=== PATIENT | female | born 1965 | race Caucasian/White ===

== ENCOUNTER → 2018-11-07 | Outpatient (CLI) | payer BC ==
--- NOTE | 2018-11-07 11:49 | Diagnostic Imaging Report ---
PROCEDURE: CT abdomen and pelvis without contrast. TECHNIQUE: Multiple contiguous axial images were obtained through the abdomen and pelvis without the use of intravenous contrast. Auto Exposure Controls were utilized during the CT exam to meet ALARA standards for radiation dose reduction. INDICATION: Left-sided flank pain radiating to the left groin for 2 weeks. Patient also has hematuria. COMPARISON: No prior studies are available for comparison. FINDINGS: The lung bases are clear. No discrete liver mass is identified. The gallbladder is unremarkable. No biliary ductal dilatation is seen. The pancreas and spleen are unremarkable. No adrenal mass is identified. No renal calculus or hydronephrosis is detected. No ureteral calculus or ureteral dilatation is identified. The aorta is partially calcified but nonaneurysmal. No central retroperitoneal or mesenteric lymphadenopathy is identified. The bowel loops are of normal caliber. There is no obstruction. No bladder calculi are seen. The uterus is unremarkable. There is no ascites. IMPRESSION: Unremarkable noncontrast CT of the abdomen and pelvis. There is no evidence of urinary tract calculi or obstruction. Dictated by: Dictated on workstation # [id number]
== END ==
LOC: RAD FS 09:28
PROVIDERS: ATTEND Family Medicine
DX: R10.32 Left lower quadrant pain (principal)
CPT/HCPCS: 74176

== ENCOUNTER 2022-04-05 06:13 | Observation (INO) | payer BC ==
[~2022-04-05] VITALS: Ht 147.3 cm; Wt 58.7 kg
[2022-04-05] MEDS ORDERED: NITROGLYCERIN 0.4 MG SL TABS BTL 25'S SL PRN ×2 (06:30→08:15)
[2022-04-05] MEDS ORDERED: ASPIRIN 81 MG CHEW (CHILDREN'S ASA) PO ONE (06:30)
--- NOTE | 2022-04-05 06:40 | ED Chest Pain ---
General Chief Complaint: Chest Wall Stated Complaint: CHEST PAIN Nursing Triage Note: Patient states that she began coughing yesterday and having chest tightness. Patient denies having pain when asked to rate her pain, she states "its just a little tight". Source: patient Exam Limitations: no limitations History of Present Illness Date Seen by Provider: Apr 05, 2022 Time Seen by Provider: 06:15 Initial Comments Patient is a 56-year-old female with history of hypertension who presents with left-sided chest pain described as soreness under her left breast rating to her left shoulder blade starting 1 hour prior to ED arrival upon getting ready for work this morning. Pain has been continuous lasting 30 to 40 minutes, waxes and wanes and is rated mild to moderate. Pain is currently described as mild. Pain is not reproduced with deep breathing or palpation, not associate with nausea vomiting or sweats. Patient denies abdominal pain, leg pain or swelling. Patient is a non-smoker. Additional cardiac risk factors include a brother who had an OH in his early 40s. Timing/Duration: 1 hour Severity/Quality: other Location: other Radiation: other Prior CP/Workup: other Modifying Factors: improves with other Allergies and Home Medications Allergies Coded Allergies: No Known Drug Allergies (Unverified , 04/05/22) Patient Home Medication List Home Medication List Reviewed: Yes Review of Systems Review of Systems Constitutional: see HPI EENTM: See HPI Respiratory: See HPI Cardiovascular: See HPI Gastrointestinal: See HPI Genitourinary: See HPI Musculoskeletal: see HPI Skin: see HPI Psychiatric/Neurological: See HPI Endocrine: See HPI Hematologic/Lymphatic: See HPI All Other Systems Reviewed Negative Unless Noted: No Past Tfrkzag-Izzmow-Qydzzw Hx Patient Social History Tobacco Use?: No Substance use?: No Alcohol Use?: No Pt feels they are or have been: No Physical Exam Vital Signs Vital Signs - First Documented 04/05/22 06:15 Temp 36.7 Pulse 86 Resp 18 B/P (MAP) 187/91 (123) Pulse Ox 97 O2 Delivery Room Air Capillary Refill : Less Than 3 Seconds Height, Weight, BMI Height: '" Weight: lbs. oz. kg; 27.00 BMI Method: General Appearance: No Apparent Distress, WD/WN HEENT: PERRL/EOMI, Normal ENT Inspection, Pharynx Normal Neck: Normal Inspection Respiratory: Lungs Clear Cardiovascular: Regular Rate, Rhythm, No Edema Gastrointestinal: Non Tender, Soft Neurologic/Psychiatric: Oriented x3 Focused Exam Sepsis Stage: Ruled Out Progress/Results/Core Measures Results/Orders Lab Results Laboratory Tests Test 04/05/22 06:45 Range/Units White Blood Count 8.9 4.3-11.0 10^3/uL Red Blood Count 5.06 3.80-5.11 10^6/uL Hemoglobin 14.6 11.5-16.0 g/dL Hematocrit 44 35-52 % Mean Corpuscular Volume 87 80-99 fL Mean Corpuscular Hemoglobin 29 25-34 pg Mean Corpuscular Hemoglobin Concent 33 32-36 g/dL Red Cell Distribution Width 12.4 10.0-14.5 % Platelet Count 245 130-400 10^3/uL Mean Platelet Volume 9.6 9.0-12.2 fL Immature Granulocyte % (Auto) 0 % Neutrophils (%) (Auto) 45 42-75 % Lymphocytes (%) (Auto) 41 12-44 % Monocytes (%) (Auto) 10 0-12 % Eosinophils (%) (Auto) 4 0-10 % Basophils (%) (Auto) 0 0-10 % Neutrophils # (Auto) 4.0 1.8-7.8 10^3/uL Lymphocytes # (Auto) 3.7 1.0-4.0 10^3/uL Monocytes # (Auto) 0.9 0.0-1.0 10^3/uL Eosinophils # (Auto) 0.3 0.0-0.3 10^3/uL Basophils # (Auto) 0.0 0.0-0.1 10^3/uL Immature Granulocyte # (Auto) 0.0 0.0-0.1 10^3/uL My Orders Orders - NIMISHA CARPENTER DO Ekg Tracing (04/05/22 06:20) Cbc With Automated Diff (04/05/22 06:24) Comprehensive Metabolic Panel (04/05/22 06:24) Troponin I Fs (04/05/22 06:24) Chest 1 View Ap/Pa Only (04/05/22 06:24) Aspirin Chewable Tablet (Baby Aspirin Ch (04/05/22 06:30) Nitroglycerin 0.4 Mg Btl 25's (Nitrostat (04/05/22 06:30) Ed Iv/Invasive Line Start (04/05/22 06:30) Monitor-Rhythm Ecg Trace Only (04/05/22 06:30) Fibrin Degradation Products (04/05/22 06:46) Ed Admission (Communication) (04/05/22 06:51) Clopidogrel Tablet (Plavix Tablet) (04/05/22 07:00) Enoxaparin Injection (Lovenox Injection) (04/05/22 07:00) Medications Given in ED Current Medications Medications Dose Ordered Sig/Joana Route Start Time Stop Time Status Last Admin Dose Admin Aspirin 324 mg ONCE ONCE PO 04/05/22 06:30 04/05/22 06:31 DC 04/05/22 06:35 324 MG Nitroglycerin 1 TAB Q 5 MIN X 3 NEEDED PRN SL 04/05/22 06:30 04/05/22 06:35 0.4 MG Vital Signs/I&O 04/05/22 06:15 Temp 36.7 Pulse 86 Resp 18 B/P (MAP) 187/91 (123) Pulse Ox 97 O2 Delivery Room Air Blood Pressure Mean: 123 Departure Communication (Admissions) EKG: Sinus rhythm, rate 83, moderate ST depression in anterior lateral leads without reciprocal changes. Chest x-ray: No acute cardiopulmonary disease. Exertional chest pain in 56-year-old patient with history of hypertension and significant family history of coronary artery disease with ST depression in anterolateral and inferior leads on EKG. Criteria for STEMI not met on initial EKG. Aspirin and nitroglycerin and cardiac given with resolution of symptoms. Cardiac biomarkers are pending. Dr. Santos agrees to consult. Impression Primary Impression: Acute coronary syndrome Disposition: ADMITTED INPATIENT Condition: Stable Admissions Decision to Admit Reason: Admit from ER (General) Decision to Admit/Date: Apr 05, 2022 Time/Decision to Admit Time: 06:41 Departure-Patient Inst. Referrals: SANDEEP RYAN MD (PCP/Family) Primary Care Physician NIMISHA CARPENTER DO Apr 05, 2022 06:40
[2022-04-05 06:51] LABS: BASOPHILS % (AUTO) 0 % (0-10); EOSINOPHILS # (AUTO) 0.3 10^3/uL (0.0-0.3); EOSINOPHILS % (AUTO) 4 % (0-10); HEMATOCRIT 44 % (35-52); HEMOGLOBIN 14.6 g/dL (11.5-16.0); LYMPHOCYTES # (AUTO) 3.7 10^3/uL (1.0-4.0); LYMPHOCYTES % (AUTO) 41 % (12-44); MEAN CORPUSCULAR HEMOGLOBIN 29 pg (25-34); MEAN CORPUSCULAR HGB CONC 33 g/dL (32-36); MEAN CORPUSCULAR VOLUME 87 fL (80-99); MEAN PLATELET VOLUME 9.6 fL (9.0-12.2); MONOCYTES # (AUTO) 0.9 10^3/uL (0.0-1.0); MONOCYTES % (AUTO) 10 % (0-12); NEUTROPHILS % (AUTO) 45 % (42-75); PLATELET COUNT 245 10^3/uL (130-400); WHITE BLOOD COUNT 8.9 10^3/uL (4.3-11.0)
--- NOTE | 2022-04-05 06:54 | Diagnostic Imaging Report ---
EXAMINATION: Chest radiograph, portable AP view. DATE: 04/05/2022 6:50 AM INDICATION: 56-year-old female, cough. COMPARISON: None. FINDINGS: Heart size and mediastinal contours are grossly unremarkable. There is no identified pneumothorax. Lung volumes are low. There is associated central bronchovascular crowding. There are opacities in the left medial lung base. There are technical limitations of the study given patient body habitus and difficulties with exposure. IMPRESSION: 1. Low lung volumes. 2. Nonspecific opacities in left medial lung base which may relate to atelectasis and/or infiltrate. Dictated by: Dictated on workstation # [id number]
[2022-04-05] MEDS ORDERED: CLOPIDOGREL 300 MG (PLAVIX) TABLET PO ONE (07:00)
[2022-04-05] MEDS ORDERED: ENOXAPARIN 60 MG/0.6 ML (LOVENOX) SYR SC ONE (07:00)
[2022-04-05 07:12] LABS: CHLORIDE 105 MMOL/L (98-107); POTASSIUM 4.5 MMOL/L (3.6-5.0); SODIUM 140 MMOL/L (135-145)
[2022-04-05 07:13] LABS: ALANINE AMINOTRANSFERASE 12 U/L (0-55); ALBUMIN 4.1 GM/DL (3.2-4.5); ALKALINE PHOSPHATASE 100 U/L (40-136); BILIRUBIN,TOTAL 0.4 MG/DL (0.1-1.0); BUN/CREATININE RATIO 16; CALCIUM 9.4 MG/DL (8.5-10.1); CARBON DIOXIDE 23 MMOL/L (21-32); CREATININE SERUM 0.58 MG/DL (0.60-1.30); GFR ESTIMATED 105; GLUCOSE 102 MG/DL (70-105); TOTAL PROTEIN 7.9 GM/DL (6.4-8.2)
[2022-04-05 07:37] LABS: INR 0.9 (0.8-1.4)
[2022-04-05] MEDS ORDERED: LIDOCAINE 1% INJ 30 ML (XYLOCAINE) VIAL ONE (07:56)
[2022-04-05] MEDS ORDERED: HEParin (CATH LAB) 2,000 ML IV ONE (07:57)
[2022-04-05] MEDS ORDERED: NS IV 1000 ML 0 ML ONE (07:57)
[2022-04-05 08:00] VITALS: BP 152/85
[2022-04-05] MEDS ORDERED: PATIENT MAY USE OWN MEDS, ALL PO SCH ×4 (08:15→17:30)
[2022-04-05] MEDS ORDERED: morphine INJ 4 MG/ML 1 ML (VIAL/SYRINGE) IV PRN (08:15)
[2022-04-05] MEDS ORDERED: ONDANSETRON 4 MG/2 ML (SDV) Z0FRAN IVP PRN (08:15)
[2022-04-05] MEDS ORDERED: MTP25TSR PO (08:57)
[2022-04-05] MEDS ORDERED: LOVA10TA PO (08:57)
[2022-04-05] MEDS ORDERED: NS IV 1000 ML 1,000 ML IV SCH ×2 (09:00→12:00)
[2022-04-05] MEDS ORDERED: ASPI-999 PO (09:00)
--- NOTE | 2022-04-05 09:25 | Cardiac Procedure Note-CS/ASA ---
Pre-Procedure Note Pre-Op Procedure Note Date of Available H&P: Apr 05, 2022 Date H&P Reviewed: Apr 05, 2022 Time H&P Reviewed: 09:25 History & Physical: H&P Reviewed, Patient Examed, No changes noted Pre-Operative Diagnosis: CP Conscious Sedation Pre-Proced Time 09:25 ASA Score 3 For ASA 3 and 4: Consider anesthesia and medical clearance. Also, for patients with a history of failed moderate sedation consider anesthesia. Airway Lungs Heart ASA score ASA 1: a normal healthy patient ASA 2: a patient with a mild systemic disease (mid diabetes, controlled hypertension, obesity ASA 3: a patient with a severe systemic disease that limits activity (angina, COPD, prior Myocardial infarction) ASA 4: a patient with an incapacitating disease that is a constant threat to life (CHF, renal failure) ASA 5: a moribund patient not expected to survive 24 hrs. (ruptured aneurysm) ASA 6: a declared brain- patient whose organs are being harvested. For emergent operations, add the letter E after the classification Mallampati Classification Grade 3 Sedation Plan Analgesia, Amnesia, Plan communicated to team members, Discussed options with patient/fam, Discussed risks with patient/fam The patient is an appropriate candidate to undergo the planned procedure, sedation, and anesthesia. The patient immediately re-assessed prior to indication. RAYMOND MELENDEZ MD Apr 05, 2022 09:25
--- NOTE | 2022-04-05 09:25 | Consultation-Cardiology ---
HPI-Cardiology Cardiology Consultation Date of Consultation 04/05/22 Date of Admission Time Seen by Provider: 09:23 Indication: Chest pain HPI 56-year-old lady with history of hypertension, woke up this morning with chest pain retrosternal area dull in nature, came into the emergency room for evaluation. She was given nitroglycerin with appropriate relief. Had minimal nondiagnostic EKG changes. On my evaluation she was still having some chest pressure, discomfort with taking deep breath. Home Medications & Allergies Allergies: Coded Allergies: No Known Drug Allergies (Unverified , 04/05/22) Home Medication List Reviewed: Yes PUS-Kkqmlv-Evkafy Hx Patient Social History Marital Status: Employed/Student: employed Smoking Status: Never a Smoker Have you traveled recently?: No Alcohol Use?: No Past Medical History Discussed below Family Medical History Significant Family History: No Pertinent Family Hx Review of Systems-General Review of Systems Constitutional: see HPI EENTM: see HPI, no symptoms reported Respiratory: no symptoms reported, see HPI Cardiovascular: see HPI, chest pain; No edema, No Hx of Intervention, No palpitations, No syncope, No vascular heart diseas, No other Gastrointestinal: no symptoms reported, see HPI Genitourinary: no symptoms reported, see HPI Musculoskeletal: see HPI Skin: see HPI Psychiatric/Neurological: See HPI All Other Systems Reviewed Negative Unless Noted: No Reviewed Test Results Reviewed Test Results Lab Laboratory Tests Test 04/05/22 06:45 Range/Units White Blood Count 8.9 4.3-11.0 10^3/uL Red Blood Count 5.06 3.80-5.11 10^6/uL Hemoglobin 14.6 11.5-16.0 g/dL Hematocrit 44 35-52 % Mean Corpuscular Volume 87 80-99 fL Mean Corpuscular Hemoglobin 29 25-34 pg Mean Corpuscular Hemoglobin Concent 33 32-36 g/dL Red Cell Distribution Width 12.4 10.0-14.5 % Platelet Count 245 130-400 10^3/uL Mean Platelet Volume 9.6 9.0-12.2 fL Immature Granulocyte % (Auto) 0 % Neutrophils (%) (Auto) 45 42-75 % Lymphocytes (%) (Auto) 41 12-44 % Monocytes (%) (Auto) 10 0-12 % Eosinophils (%) (Auto) 4 0-10 % Basophils (%) (Auto) 0 0-10 % Neutrophils # (Auto) 4.0 1.8-7.8 10^3/uL Lymphocytes # (Auto) 3.7 1.0-4.0 10^3/uL Monocytes # (Auto) 0.9 0.0-1.0 10^3/uL Eosinophils # (Auto) 0.3 0.0-0.3 10^3/uL Basophils # (Auto) 0.0 0.0-0.1 10^3/uL Immature Granulocyte # (Auto) 0.0 0.0-0.1 10^3/uL Prothrombin Time 13.0 12.2-14.7 SEC INR Comment 0.9 0.8-1.4 Activated Partial Thromboplast Time 26 24-35 SEC D-Dimer 0.49 0.00-0.49 UG/ML Sodium Level 140 135-145 MMOL/L Potassium Level 4.5 3.6-5.0 MMOL/L Chloride Level 105 98-107 MMOL/L Carbon Dioxide Level 23 21-32 MMOL/L Anion Gap 12 5-14 MMOL/L Blood Urea Nitrogen 9 7-18 MG/DL Creatinine 0.58 L 0.60-1.30 MG/DL Estimat Glomerular Filtration Rate 105 BUN/Creatinine Ratio 16 Glucose Level 102 70-105 MG/DL Calcium Level 9.4 8.5-10.1 MG/DL Corrected Calcium 9.3 8.5-10.1 MG/DL Total Bilirubin 0.4 0.1-1.0 MG/DL Aspartate Amino Transf (AST/SGOT) 18 5-34 U/L Alanine Aminotransferase (ALT/SGPT) 12 0-55 U/L Alkaline Phosphatase 100 40-136 U/L Troponin I < 0.30 <0.30 NG/ML Total Protein 7.9 6.4-8.2 GM/DL Albumin 4.1 3.2-4.5 GM/DL Physical Exam Physical Exam Vital Signs Vital Signs - First Documented 04/05/22 06:15 Temp 36.7 Pulse 86 Resp 18 B/P (MAP) 187/91 (123) Pulse Ox 97 O2 Delivery Room Air Capillary Refill : Less Than 3 Seconds Height, Weight, BMI Height: '" Weight: lbs. oz. kg; 27.05 BMI Method: General Appearance: No Apparent Distress, WD/WN HEENT: PERRL/EOMI, Normal ENT Inspection, Pharynx Normal Neck: Normal Inspection Respiratory: Lungs Clear Cardiovascular: Regular Rate, Rhythm, No Edema Gastrointestinal: Non Tender, Soft Neurologic/Psychiatric: Oriented x3 A/P-Cardiology Admission Diagnosis Chest pain Coronary artery disease Hypertension Hyperlipidemia Assessment/Plan Chest pain nonspecific etiology resembling angina Minimal EKG changes, chest pain is responsive to nitroglycerin but still having some discomfort in the retrosternal area. Discussed the management plan, recommended cardiac catheterization possible PTCA. Hypertension, maintained on metoprolol. Monitor blood pressure Questionable hyperlipidemia, I will evaluate lipid profile Clinical Quality Measures AMI/AHF: ASA po Prior to arrival: RAYMOND Ravi MD Apr 05, 2022 09:25
--- NOTE | 2022-04-05 10:06 | History & Physical ---
HPI History of Present Illness: 56 yo female with Chest tightness in mid chest that started when she got out of bed and became more noticeable as she got ready for work. Worse with deep breath. No history of chest tightness or pressure in the past even with activity. Does not radiate. Started around 5 am. [place] like a pulled muscle to her. Currently has no sensation unless she takes a deep breath then feels the tightness. She has no history of PE. She does admit family history of heart disease, mother has had stents placed, brother has had heart attack. Source: patient Date seen by provider: Apr 05, 2022 Time Seen by Provider: 10:03 Attending Physician Gt Horton MD PCP Admitting Physician: Maggie Branham MD Attending Physician: Maggie Branham MD Consult Date of Admission Apr 05, 2022 at 08:41 Home Medications Home Medications Reviewed patient Home Medication Reconciliation performed by pharmacy medication reconciliations fire extinguisher technician and/or nursing. Patients Allergies have been reviewed. Allergies Coded Allergies: No Known Drug Allergies (Unverified , 04/05/22) DKU-Owyiti-Rkaygw Hx Patient Social History Marrital Status: Employed/Student: employed (works at [employer]) Smoking Status: Never a Smoker Alcohol Use?: No Have you traveled recently?: No Immunizations Up To Date Influenza Vaccine Up-to-Date: Yes; Up-to-Date Past Medical History PMHx: HTN Glaucoma HLD SurgHx: C section x 3 Family Medical History Significant Family History: Heart Disease, Cancer (father colon cancer), Diabetes Review of Systems (CHC) Constitutional: No fever EENTM: No nose congestion, No throat pain Respiratory: cough (x 2 days); No short of breath Cardiovascular: see HPI Gastrointestinal: No abdominal pain, No constipation, No diarrhea, No nausea, No vomiting Genitourinary: No dysuria Musculoskeletal: No joint pain Skin: No rash Psychiatric/Neurological: Denies Anxiety, Denies Depressed Reviewed Test Results Reviewed Test Results Lab Laboratory Tests Test 04/05/22 06:45 Range/Units White Blood Count 8.9 4.3-11.0 10^3/uL Red Blood Count 5.06 3.80-5.11 10^6/uL Hemoglobin 14.6 11.5-16.0 g/dL Hematocrit 44 35-52 % Mean Corpuscular Volume 87 80-99 fL Mean Corpuscular Hemoglobin 29 25-34 pg Mean Corpuscular Hemoglobin Concent 33 32-36 g/dL Red Cell Distribution Width 12.4 10.0-14.5 % Platelet Count 245 130-400 10^3/uL Mean Platelet Volume 9.6 9.0-12.2 fL Immature Granulocyte % (Auto) 0 % Neutrophils (%) (Auto) 45 42-75 % Lymphocytes (%) (Auto) 41 12-44 % Monocytes (%) (Auto) 10 0-12 % Eosinophils (%) (Auto) 4 0-10 % Basophils (%) (Auto) 0 0-10 % Neutrophils # (Auto) 4.0 1.8-7.8 10^3/uL Lymphocytes # (Auto) 3.7 1.0-4.0 10^3/uL Monocytes # (Auto) 0.9 0.0-1.0 10^3/uL Eosinophils # (Auto) 0.3 0.0-0.3 10^3/uL Basophils # (Auto) 0.0 0.0-0.1 10^3/uL Immature Granulocyte # (Auto) 0.0 0.0-0.1 10^3/uL Prothrombin Time 13.0 12.2-14.7 SEC INR Comment 0.9 0.8-1.4 Activated Partial Thromboplast Time 26 24-35 SEC D-Dimer 0.49 0.00-0.49 UG/ML Sodium Level 140 135-145 MMOL/L Potassium Level 4.5 3.6-5.0 MMOL/L Chloride Level 105 98-107 MMOL/L Carbon Dioxide Level 23 21-32 MMOL/L Anion Gap 12 5-14 MMOL/L Blood Urea Nitrogen 9 7-18 MG/DL Creatinine 0.58 L 0.60-1.30 MG/DL Estimat Glomerular Filtration Rate 105 BUN/Creatinine Ratio 16 Glucose Level 102 70-105 MG/DL Calcium Level 9.4 8.5-10.1 MG/DL Corrected Calcium 9.3 8.5-10.1 MG/DL Total Bilirubin 0.4 0.1-1.0 MG/DL Aspartate Amino Transf (AST/SGOT) 18 5-34 U/L Alanine Aminotransferase (ALT/SGPT) 12 0-55 U/L Alkaline Phosphatase 100 40-136 U/L Troponin I < 0.30 <0.30 NG/ML Total Protein 7.9 6.4-8.2 GM/DL Albumin 4.1 3.2-4.5 GM/DL Physical Exam-([facility]) Physical Exam Vital Signs VS - Last 72 Hours, by Label 04/05/22 04/05/22 04/05/22 04/05/22 06:15 07:46 08:00 08:45 Temp 36.7 37.3 Pulse 86 82 84 Resp 18 16 20 B/P (MAP) 187/91 (123) 141/75 152/85 (107) Pulse Ox 97 96 96 O2 Delivery Room Air Room Air Room Air Room Air 04/05/22 04/05/22 08:52 12:30 Pulse 77 76 Capillary Refill : Less Than 3 Seconds General Appearance: WD/WN, no apparent distress Respiratory: lungs clear, normal breath sounds Cardiovascular: regular rate, rhythm, no murmur Gastrointestinal: normal bowel sounds, non tender, soft Extremities: no pedal edema Neurologic/Psychiatric: alert, normal mood/affect Skin: normal color, warm/dry Assessment/Plan Assessment/Plan Admission Status: Observation (1) Chest pain Status: Acute Assessment & Plan: Initial trop neg, EKG with some ST depression, given enoxaparin treatment dose, asa and plavix and Cardiology consulted. (2) Hypertension Status: Chronic Qualifiers: Qualified Codes: I10 - Essential (primary) hypertension Clinical Quality Measures AMI/AHF: ASA po Prior to arrival: MAGGIE Franklin MD Apr 05, 2022 10:06
[2022-04-05] MEDS ORDERED: HEParin 1000 UNIT/ML (10ML VIAL) FOR BOLUS ONE (10:39)
[2022-04-05] MEDS ORDERED: VERAPAMIL 5 MG/2 ML (CALAN) VIAL IV ONE (10:39)
[2022-04-05] MEDS ORDERED: fentaNYL INJ 100 MCG/2 ML AMP ONE (10:39)
[2022-04-05] MEDS ORDERED: MIDAZOLAM 5 MG/5 ML (VERSED) VIAL ONE (10:39)
[2022-04-05] MEDS ORDERED: NITRO DRIP 25000 MCG/D5W 0 ML IV ONE (10:39)
--- NOTE | 2022-04-05 12:00 | Discharge Inst-Post CATH ---
Discharge Inst-CATH/EP Problems Reviewed?: Yes Post Cardiac Cath/EP D/C Inst Follow Up/Plan Appointment with Dr. Santos's office in 2 to 4 weeks <b>CARDIAC CATH/EP PROCEDURE DISCHARGE INSTRUCTIONS</b> ACTIVITY * Go Home directly and rest. * Limit activity of the leg (or wrist if it was used) for 7 days including aer obics, swimming, jogging, bicycling, etc. * Restrict stair-climbing for 7 days if possible, if not, climb up with your non-cath leg, then bring together on the same step. * Avoid lifting, pushing, pulling or excessive movement of the affected extremi ty for 7 days. * Customary sexual activity may be resumed after 2 days-use caution not to use a position that strains or causes pain to the affected extremity. * No driving for 24 hours. * NO SMOKING. * Avoid straining for bowel movements for 7 days. * Gentle walking on level ground is allowed. * Returning to work will depend on the type of procedure and the results. Your doctor will discuss this with you. CALL YOUR DOCTOR FOR ANY OF THE FOLLOWING: *If bleeding from the puncture site occurs- Apply gentle pressure to site with clean cloth and call your doctor or EMS. * If a knot or lump forms under the skin, increases in size, or causes pain. * If bruising appears to be worsening or moving further down your leg instead of disappearing. * Temperature above 101 F. CARE OF YOUR GROIN INCISION; * Bruising or purple discoloration of the skin near the puncture site is common. * You may shower only, no bathtub bathing for 5 days. Be careful to avoid slipping as your leg may feel stiff. * If a closure device was used on your femoral artery, please see the attached guide regarding care of the device and your leg. * Leave dressing on FOR 24 hours. CARE OF YOUR WRIST INCISION; * Bruising or purple discoloration of the skin near the puncture site is common. * You may shower. * DO NOT submerge wrist. * Leave dressing on FOR 24 hours. RAYMOND SANTOS MD Apr 05, 2022 12:00
--- NOTE | 2022-04-05 12:04 | Cardiac Cath Report ---
Cardiac Cath Report Physician (s)/Auto Mechanics Instructor (s) Physician RAYMOND MELENDEZ MD Pre-Procedure Diagnosis Pre-Procedure Diagnosis: CP Post-Procedure Note Procedure Start Date: Apr 05, 2022 Name of Procedure: Left heart catheterization Aortic root angiogram Findings/Procedure Note PROCEDURE NOTE: 56-year-old lady admitted with acute chest pain, minimal EKG changes, cardiac catheterization was advised. After explaining the procedure to the patient, all pros and cons were explained, all questions were answered. The patient signed the consent and then she was placed in the cardiac catheterization laboratory. Groin was prepped in SL fashion local anesthesia was used. Sheath placed in the right femoral artery. Brenna' right and left catheter were used to access the coronary system. Pigtail was used to access the left ventricular cavity. Left ventriculogram was not done, pressure was measured Aortic arch angiogram root angiogram was done At the end of the procedure the sheath was removed. Closure device was deployed FINDINGS: Hemodynamics LV 130/10, end-diastolic pressure of 10 Aorta 137/81 mean of 103 ANATOMY: Left Main is free of obstructive disease Left Anterior Descending has mild to moderate disease 40 to 50% stenosis in the mid LAD nonobstructive disease Left Circumflex is moderate in size with no obstructive disease Right Coronary Artery is dominant artery with no obstructive disease LV Gram was not done, pressure was measured and normal left ventricular end- diastolic pressure Aorta evaluation done with aortic root angiogram showing normal aortic root, no dissection or aneurysm. Normal aortic valve CONCLUSION: 1. Mild to moderate mid LAD stenosis nonobstructive disease otherwise no significant obstructive disease with dominant right coronary system 2. Normal left ventricular end-diastolic pressure 3. Normal aortic root and aortic arch. DISCUSSION AND RECOMMENDATION: Chest pain is probably noncardiac, medical therapy is recommended Anesthesia Type: Conscious Sedation Estimated blood loss (mL): 20 ml Contrast Amount: 42 ml Total Radiation Dose: 211 mGy Post-Procedure Diagnosis Post-operative diagnosis: Chest pain Coronary artery disease Hypertension Hyperlipidemia RAYMOND MELENDEZ MD Apr 05, 2022 12:04
[2022-04-05] MEDS ORDERED: ASPI-1238 PO (14:22)
--- NOTE | 2022-04-05 15:28 | Discharge Summary ---
Discharge Summary Hospital Course Problems/Diagnosis: (1) Chest pain Status: Acute Assessment & Plan: Initial trop neg, EKG with some ST depression, given enoxaparin treatment dose, asa and plavix and Cardiology consulted- repeat trop neg, cath done with no intervention needed. (2) Hypertension Status: Chronic Qualifiers: Qualified Codes: I10 - Essential (primary) hypertension Hospital Course Date of Admission: Apr 05, 2022 at 08:41 Admission Diagnosis : Family Physician/Provider: Gt Horton MD Date of Discharge: 04/05/22 Discharge Diagnosis: See problem list Hospital Course: See problem list Labs and Pending Lab Test: Laboratory Tests 04/05/22 06:45: White Blood Count 8.9, Red Blood Count 5.06, Hemoglobin 14.6, Hematocrit 44, Mean Corpuscular Volume 87, Mean Corpuscular Hemoglobin 29, Mean Corpuscular Hemoglobin Concent 33, Red Cell Distribution Width 12.4, Platelet Count 245, Mean Platelet Volume 9.6, Immature Granulocyte % (Auto) 0, Neutrophils (%) (Auto) 45, Lymphocytes (%) (Auto) 41, Monocytes (%) (Auto) 10, Eosinophils (%) (Auto) 4, Basophils (%) (Auto) 0, Neutrophils # (Auto) 4.0, Lymphocytes # (Auto) 3.7, Monocytes # (Auto) 0.9, Eosinophils # (Auto) 0.3, Basophils # (Auto) 0.0, Immature Granulocyte # (Auto) 0.0, Prothrombin Time 13.0, INR Comment 0.9, Activated Partial Thromboplast Time 26, D-Dimer 0.49, Sodium Level 140, Potassium Level 4.5, Chloride Level 105, Carbon Dioxide Level 23, Anion Gap 12, Blood Urea Nitrogen 9, Creatinine 0.58L, Estimat Glomerular Filtration Rate 105, BUN/Creatinine Ratio 16, Glucose Level 102, Calcium Level 9.4, Corrected Calcium 9.3, Total Bilirubin 0.4, Aspartate Amino Transf (AST/SGOT) 18, Alanine Aminotransferase (ALT/SGPT) 12, Alkaline Phosphatase 100, Troponin I < 0.30, Total Protein 7.9, Albumin 4.1 04/05/22 10:08: Troponin I < 0.028 Home Meds Active Reported Aspirin EC (Aspirin) 81 Mg Tablet.dr 81 Mg PO HS Metoprolol Succinate 25 Mg Tab.er.24h 25 Mg PO HS Lovastatin 10 Mg Tablet 10 Mg PO HS Assessment/Pt DC Instructions Follow up with primary doctor within a week or two of discharge. Discharge Physical Examination Allergies: Coded Allergies: No Known Drug Allergies (Unverified , 04/05/22) Clinical Quality Measures AMI/AHF: ASA po Prior to arrival: MAGGIE Franklin MD Apr 05, 2022 15:28
[2022-04-05 15:39] VITALS: BP 128/75
[2022-04-05 17:39] VITALS: BP 128/75
== END 2022-04-05 17:03 | disposition home or self-care (01) ==
LOC: EDUNIT# 06:13 → ER FS 06:16 → CSD 08:41 → UNDOADMOB 08:41 → UNDODISOB 17:03
PROVIDERS: ADMIT Family Medicine; ATTEND Family Medicine
DX: I25.10 Atherosclerotic heart disease of native coronary artery without angina pectoris (principal); I10 Essential (primary) hypertension; E78.5 Hyperlipidemia, unspecified
CPT/HCPCS: 36415; 71045; 80053; 84484 ×2; 85025; 85379; 85610; 85730; 93005; 93041; 93458; 93567; 99284; C1760; C1894; C8929; G0378; 93306

== ENCOUNTER 2022-04-25 02:57 | Emergency (ER) | payer BC ==
[~2022-04-25] VITALS: Ht 147 cm; Wt 57.3 kg
[~2022-04-25 02:57] MED LIST: ASPI-1238 PO; ASPI-999 PO; LOVA10TA PO; MTP25TSR PO
--- NOTE | 2022-04-25 03:14 | ED Cough/URI ---
General Stated Complaint: COVID +TEST/SORE THROAT/CHILLS History of Present Illness Date Seen by Provider: Apr 25, 2022 Time Seen by Provider: 03:09 Initial Comments 56-year-old female presents with cough, sore throat chills and generalized body aches and malaise. Patient took a home test and is positive for COVID. Symptoms just been going on for last day or so. No shortness of breath. Allergies and Home Medications Allergies Coded Allergies: No Known Drug Allergies (Unverified , 04/05/22) Patient Home Medication List Home Medication List Reviewed: Yes Aspirin (Aspirin EC) 81 Mg Tablet.dr, 81 MG PO HS, (Reported) Entered as Reported by: JEANETTE VERDUGO on 04/05/22 1422 Lovastatin (Lovastatin) 10 Mg Tablet, 10 MG PO HS, (Reported) Entered as Reported by: SEDA STONE on 04/05/22 0857 Metoprolol Succinate (Metoprolol Succinate) 25 Mg Tab.er.24h, 25 MG PO HS, (Reported) Entered as Reported by: SEDA STONE on 04/05/22 0857 Review of Systems Review of Systems Constitutional: chills, malaise EENTM: throat pain Respiratory: cough; No short of breath Cardiovascular: No chest pain Gastrointestinal: No abdominal pain, No nausea, No vomiting Genitourinary: no symptoms reported Musculoskeletal: see HPI Skin: no symptoms reported Psychiatric/Neurological: No Symptoms Reported Past [id number] Hx Family Medical History Reviewed Nursing Family Hx Heart Disease, Cancer, Diabetes Physical Exam Capillary Refill : Height: '" Weight: lbs. oz. kg; 27.05 BMI Method: General Appearance: WD/WN, no apparent distress Neck: full range of motion Respiratory: lungs clear, normal breath sounds Cardiovascular: normal peripheral pulses, regular rate, rhythm Gastrointestinal: non tender, soft Neurologic/Psychiatric: alert, normal mood/affect, oriented x 3 Skin: normal color, warm/dry Progress/Results/Core Measures Suspected Sepsis SIRS Temperature: Pulse: Respiratory Rate: Blood Pressure / Mean: Results/Orders Vital Signs/I&O Capillary Refill : Progress Note : Progress Note Patient is known positive for COVID with a home test. Patient's symptoms are consistent with COVID. Discussed there is no reason for further testing. Patient will be provided a work note. Discussed with her supportive care. Patient stable and discharged home Departure Impression Primary Impression: COVID-19 Disposition: 01 HOME, SELF-CARE Condition: Stable Departure-Patient Inst. Referrals: SANDEEP RYAN MD (PCP/Family) Primary Care Physician Patient Instructions: COVID-19 (DC) Add. Discharge Instructions: Please follow CDC isolation and your works COVID work policy for return to work. Work/School Note: Work Release Form Date Seen in the Emergency Department: Apr 25, 2022 Return to Work: Apr 29, 2022 Restrictions: No Restrictions Other Restrictions Listed Below: Please follow CDC COVID isolation and ret urn to work guidelines TIKI LUKE DO Apr 25, 2022 03:14
[2022-04-25 03:34] VITALS: BP 114/72
== END 2022-04-25 03:35 | disposition home or self-care (01) ==
LOC: EDUNIT# 02:57 → ER FS 02:59
DX: U07.1 COVID-19 (principal); Z73.0 Burn-out; Z28.311 Partially vaccinated for COVID-19
CPT/HCPCS: 99283